=== PATIENT | female | born 1985 ===

== ENCOUNTER 2021-02-04 02:39 | Emergency (ER) | payer MEDICAID ==
[~2021-02-04] VITALS: Ht 170.2 cm; Wt 93.9 kg
--- NOTE | 2021-02-04 02:40 | NUR ---
Pt BIB RA 85 d/t alcohol intoxication, A/O x2, no SOB or labored breathing, afebrile. Denies any CP/pressure. Denies n/v/d.
--- NOTE | 2021-02-04 02:43 | NUR ---
Dr. Jett at bedside, MSE in progress.
--- NOTE | 2021-02-04 04:34 | NUR ---
Patient is resting comfortably in bed with eyes closed, vitals stable.
--- NOTE | 2021-02-04 05:16 | NUR ---
Assisted resident to restroom, noted with steady gait. Re-oriented to place and situation, verbalized understanding. Pt now in bed, resting comfortably. Bed in lowest position for safey precautions.
--- NOTE | 2021-02-04 06:45 | NUR ---
Patient discharged to home in stable condition. A/O x4, no SOB or labored breathing, afebrile. Denies any pain/discomfort. Written and verbal after care instructions given. Patient verbalizes understanding of instructions. Stressed follow up or return to ER for worsening s/s. Steady gait. Picked up by family.
[2021-02-04 06:47] VITALS: BP 136/88
== END 2021-02-04 06:47 | disposition home or self-care (01) ==
LOC: ER 02:43
DX: F10.129 Alcohol abuse with intoxication, unspecified (principal)
CPT/HCPCS: A4663